=== PATIENT | female | born 1950 | race Caucasian/White ===

== ENCOUNTER 2018-09-01 13:54 | Outpatient (CLI) | payer MEDICARE, OTHER ==
--- NOTE | 2018-09-01 17:12 | DEXA Report ---
Reason: AGE RELATED OSTOPOROSIS W/O CURRENT PATHOLOGICAL Procedure Date: 09/01/2018 Accession Number: [id number] / [id number] Procedure: DEX - Dexa Spine and/or Hip CPT Code: FULL RESULT: EXAM: Dexa Spine and/or Hip DATE: 09/01/2018 2:38 PM CLINICAL HISTORY: AGE RELATED OSTEOPOROSIS W/O CURRENT PATHOLOGICAL TECHNIQUE: Dual energy x-ray absorptiometry (DXA) was performed on a [employer] System. Regions measured are the AP Spine, femoral neck, and if needed forearm. COMPARISON: None. In accordance with the International Society for Clinical Densitometry (ISCD) guidelines, data from previous exams may be reanalyzed using current recommendations and techniques. This is done to allow a more accurate basis for comparison with the current study. FINDINGS: The data for the lumbar spine is as follows: BMD (g/cm/cm) T-SCORE Z-SCORE REGION L1 0.856 -2.3 -0.5 L2 0.855 -2.9 -1.1 L3 0.984 -1.8 0.0 L4 0.928 -2.3 -0.5 TOTAL 0.910 -2.3 -0.5 NOTE: All evaluable vertebrae are used for classification The data for the hip is as follows: BMD (g/cm/cm) T-SCORE Z-SCORE REGION Neck 0.590 -3.2 -1.6 TOTAL 0.647 -2.9 -1.4 NOTE: The femoral neck or total proximal femur, whichever is lowest, is used for classification. IMPRESSION: THE WHO CLASSIFICATION BASED ON THE INTERNATIONAL REFERENCE STANDARD IS OSTEOPOROSIS. THE FRACTURE RISK IS HIGH. RECOMMENDATION: Patients with diagnosis of osteoporosis or osteopenia should have regular bone mineral density assessment. For those eligible for Medicare, routine testing is allowed once every 2 years. Testing frequency can be increased for patients who have rapidly progressing disease or for those who are receiving medical therapy to restore bone mass. COMMENT: World Health Organization (WHO) definitions for osteoporosis and osteopenia: NORMAL BMD: T-score at -1.0 or higher, fracture risk is low OSTEOPENIA BMD: T-score between -1.0 and -2.5, fracture risk is increased. OSTEOPOROSIS BMD: T-score at -2.5 or lower, fracture risk is high. National Osteoporosis Foundation recommends: 1. Obtain adequate dietary calcium (at least 1200 mg per day) and vitamin D (400-800 international units per day). 2. Participate, as appropriate, in regular weightbearing and muscle-strengthening exercise. 3. Avoid tobacco use and reduce alcohol and caffeine intake. 4. For more detailed information see the website at www.NOF.org.
== END 2018-09-01 13:55 | disposition home or self-care (01) ==
LOC: DI 13:54
PROVIDERS: ATTEND Family Medicine
DX: M81.0 Age-related osteoporosis without current pathological fracture (principal)
CPT/HCPCS: 77080

== ENCOUNTER 2019-09-05 12:26 | Outpatient (CLI) | payer MEDICARE, OTHER ==
--- NOTE | 2019-09-06 10:13 | DEXA Report ---
Reason: OSTEOPOROSIS, POST MENOPAUSAL Procedure Date: 09/05/2019 Accession Number: [id number] / [id number] Procedure: DEX - Dexa Spine and/or Hip CPT Code: Final Report FULL RESULT: EXAM: Dexa Spine and/or Hip DATE: 09/05/2019 12:52 PM CLINICAL HISTORY: OSTEOPOROSIS, POST MENOPAUSAL TECHNIQUE: Dual energy x-ray absorptiometry (DXA) was performed on a [employer] System. Regions measured are the AP Spine, femoral neck, and if needed forearm. COMPARISON: 09/01/2018. In accordance with the International Society for Clinical Densitometry (ISCD) guidelines, data from previous exams may be reanalyzed using current recommendations and techniques. This is done to allow a more accurate basis for comparison with the current study. FINDINGS: The data for the lumbar spine is as follows: BMD (g/cm/cm) T-SCORE Z-SCORE REGION L1 0.822 -2.6 -0.8 L2 0.834 -3.1 -1.3 L3 0.942 -2.1 -0.4 L4 0.942 -2.1 -0.4 TOTAL 0.890 -2.4 -0.6 NOTE: All evaluable vertebrae are used for classification The data for the hip is as follows: BMD (g/cm/cm) T-SCORE Z-SCORE REGION Neck 0.614 -3.1 -1.4 TOTAL 0.668 -2.7 -1.2 NOTE: The femoral neck or total proximal femur, whichever is lowest, is used for classification. DXA RESULTS SUMMARY: Spine SCAN DATE AGE BMD CHANGE VS CHANGE VS PREVIOUS PREVIOUS % 09[birth year]05/2019 [age] 0.890 -0.020 -2.2 09[birth year]01/2018 68.6 0.910 * Denotes significant change at the 95% confidence level. Denotes dissimilar scan types or analysis methods. DXA RESULTS SUMMARY: Hip SCAN DATE AGE BMD CHANGE VS CHANGE VS PREVIOUS PREVIOUS % [birth year][age][birth year]/2019 69.6 0.668 0.021 3.2 09[birth year]01/2018 68.6 0.647 * Denotes significant change at the 95% confidence level. Denotes dissimilar scan types or analysis methods. IMPRESSION: THE WHO CLASSIFICATION BASED ON THE INTERNATIONAL REFERENCE STANDARD IS OSTEOPOROSIS. THE FRACTURE RISK IS HIGH. RECOMMENDATION: Patients with diagnosis of osteoporosis or osteopenia should have regular bone mineral density assessment. For those eligible for Medicare, routine testing is allowed once every 2 years. Testing frequency can be increased for patients who have rapidly progressing disease or for those who are receiving medical therapy to restore bone mass. COMMENT: World Health Organization (WHO) definitions for osteoporosis and osteopenia: NORMAL BMD: T-score at -1.0 or higher, fracture risk is low OSTEOPENIA BMD: T-score between -1.0 and -2.5, fracture risk is increased. OSTEOPOROSIS BMD: T-score at -2.5 or lower, fracture risk is high. National Osteoporosis Foundation recommends: 1. Obtain adequate dietary calcium (at least 1200 mg per day) and vitamin D (400-800 international units per day). 2. Participate, as appropriate, in regular weightbearing and muscle-strengthening exercise. 3. Avoid tobacco use and reduce alcohol and caffeine intake. 4. For more detailed information see the website at www.NOF.org.
== END 2019-09-05 12:27 | disposition home or self-care (01) ==
LOC: DI 12:26
PROVIDERS: ATTEND Family Medicine
DX: M81.0 Age-related osteoporosis without current pathological fracture (principal); Z78.0 Asymptomatic menopausal state
CPT/HCPCS: 77080

== ENCOUNTER 2020-12-09 08:49 | Outpatient (CLI) | payer MEDICARE, OTHER ==
--- NOTE | 2020-12-10 12:36 | Mammography Report ---
BILATERAL DIGITAL SCREENING MAMMOGRAM 3D/2D WITH AUGMENTATION: 12/09/2020 CLINICAL: Routine screening. Comparison is made to exams dated: 11/28/2019 mammogram, 11/16/2018 mammogram, 09/02/2017 mammogram, a nd 08/31/2016 mammogram - [facility]. The tissue of both breasts is predominantly fat ty. There is a 1.1 cm mass in the left breast at 9 o'clock middle depth 3.7 cm from the nipple. No other significant masses, calcifications, or other findings are seen in either breast. IMPRESSION: INCOMPLETE: NEEDS ADDITIONAL IMAGING EVALUATION The 1.1 cm mass in the left breast is indeterminate. A possible ultrasound or additional views with possible ultrasound are recommended. This exam was interpreted at Station ID: [id number]. NOTE: For mammograms, a report in lay terms will be sent to the patient. Approximately 15% of breast malignancies will not be visualized mammographically. In the management of a palpable breast mass, a negative mammogram must not discourage biopsy of a clinically suspicious lesion. Electronically Signed By: Eugenio Herrera M.D., jr/anh:12/09/2020 09:39:20 ACR BI-RADS Category 0: Incomplete 3340F PARENCHYMAL PATTERN: (F) - The breast(s) demonstrate(s) diffuse fatty replacement. BI-RADS CATEGORY: (0) - 0 Ultrasound [id number] Immediate follow-up LATERALITY: (B)
== END 2020-12-09 08:50 | disposition home or self-care (01) ==
LOC: DI.S 08:49
DX: Z12.31 Encounter for screening mammogram for malignant neoplasm of breast (principal); N63.25 Unspecified lump in the left breast, overlapping quadrants

== ENCOUNTER 2021-01-29 10:25 | Outpatient (CLI) | payer MEDICARE, OTHER ==
--- NOTE | 2021-01-30 15:19 | Mammography Report ---
UNILATERAL LEFT DIGITAL DIAGNOSTIC MAMMOGRAM 3D/2D: 01/29/2021 CLINICAL: Patient returns for additional imaging over a suspected mass in the left breast. Comparison is made to exams dated: 12/09/2020 mammogram - [facility], 11/28/2019 [facility], 11/16/2018 mammogram, 09/02/2017 mammogram, and 08/31/2016 mammogram - [facility] [place]. There are scattered fibroglandular elements in left breast. Left submuscular saline implant is present. There is a 1.1 cm mass in the left breast at 9 o'clock middle depth 3.7 cm from the nipple. There also is an oval low density asymmetry with an obscured and circumscribed margin in the left cailin ast at 11 o'clock posterior depth. No other significant masses or calcifications are seen in the breast. IMPRESSION: INCOMPLETE: NEEDS ADDITIONAL IMAGING EVALUATION The 1.1 cm mass in the left breast at 9 o'clock middle depth resembles a cyst but remains indetermin ate. The oval low density asymmetry in the left breast at 11 o'clock posterior depth resembles a cyst but remains indeterminate. Ultrasound is recommended for full evaluation of these areas . This was performed immediately followi ng this exam. This exam was interpreted at Station ID: [id number]. NOTE: For mammograms, a report in lay terms will be sent to the patient. Approximately 15% of breast malignancies will not be visualized mammographically. In the management of a palpable breast mass, a negative mammogram must not discourage biopsy of a clinically suspicious lesion. Electronically Signed By: Linda gonzalez/:01/29/2021 11:49:15 ACR BI-RADS Category 0: Incomplete 3340F PARENCHYMAL PATTERN: (A) - The breast(s) demonstrate(s) scattered fibroglandular densities. BI-RADS CATEGORY: (0) - 0 Ultrasound [id number] Immediate follow-up LATERALITY: (B)
--- NOTE | 2021-01-30 15:19 | Ultrasound Report ---
LIMITED ULTRASOUND OF LEFT BREAST: 01/29/2021 CLINICAL: Patient returns for additional imaging over a suspected mass in the left breast. Comparison is made to exams dated: 01/29/2021 mammogram, 12/09/2020 mammogram - [facility], 11/28/2019 mammogram, 11/16/2018 mammogram, 09/02/2017 mammogram, and 08/31/2016 mammogram - [facility]. Color flow ultrasound of the left breast 9 o'clock and 11 o'clock regions was performed. Clements scale images of the real-time examination were reviewed. There is a possible 0.9 cm x 1.2 cm x 0.2 cm oval area of fibroglandular tissue in the left breast at 11 o'clock middle depth 3 cm from the nipple with the long axis parallel to the skin. This oval are a of fibroglandular tissue is hypoechoic. This correlates with mammography findings. Color flow dakota ging demonstrates that there is no vascularity present. IMPRESSION: PROBABLY BENIGN The 1.2 cm oval area of possible fibroglandular tissue in the left breast resembles clustered cysts, a lymph node, or a fibroadenoma and is probably benign. There is no abnormality seen in the left breast to correspond with the mammography finding at 9 o'rivka ck which likely represents normal fibroglandular tissue. A follow-up left mammogram and an ultrasound in 6 months is recommended to demonstrate stability of t hese areas . Findings and recommendations were conveyed to the patient at time of exam. This exam was interpreted at Station ID: [id number]. Electronically Signed By: Linda gonzalez/:01/29/2021 12:18:30 Ultrasound BI-RADS: 3 Probably benign BI-RADS CATEGORY: (3) - 3 Mammo and [place] [id number] 6 month follow-up LATERALITY: (L)
== END 2021-01-29 10:26 | disposition home or self-care (01) ==
LOC: DI 10:25
PROVIDERS: ATTEND Student in an Organized Health Care Education/Training Program
DX: R92.8 Other abnormal and inconclusive findings on diagnostic imaging of breast (principal); N64.9 Disorder of breast, unspecified

== ENCOUNTER 2021-08-11 08:03 | Outpatient (CLI) | payer MEDICARE, OTHER ==
--- NOTE | 2021-08-18 14:26 | DEXA Report ---
PROCEDURE: Dexa Spine and/or Hip INDICATIONS: OSTEOPOROSIS TECHNIQUE: Dual energy x-ray absorptiometry (DXA) was performed on a [employer] System. Regions measur ed are the AP Spine, femoral neck, and if needed forearm. COMPARISON: None. FINDINGS: Lumbar Spine: Bone Mineral Density 0.882 g/cm/cm,T score -2.5, minimal osteoporosis Left Hip: Bone Mineral Density 0.629 g/cm/cm,T score -3.0, mild osteoporosis Left Femoral Neck: Bone Mineral Density 0.588 g/cm/cm, T score -3.2, mild osteoporosis (T score greater or equal to -1.0: NORMAL) (T score from -1.1 to -2.4: OSTEOPENIA) (T score less than or equal to -2.5 to: OSTEOPOROSIS) Impression: Osteoporosis within the spine, hip and femoral neck. Patients with diagnosis of osteoporosis or osteopenia should have regular bone mineral density assess ment. For those eligible for Medicare, routine testing is allowed once every 2 years. Testing frequ ency can be increased for patients who have rapidly progressing disease or for those who are receivin g medical therapy to restore bone mass. Reviewed by: Teagan Emmanuel MD on 08/18/2021 2:25 PM PDT Approved by: Teagan Emmanuel MD on 08/18/2021 2:25 PM PDT Station ID: [id number]
== END 2021-08-11 08:04 | disposition home or self-care (01) ==
LOC: DI 08:03
PROVIDERS: ATTEND Family Medicine
DX: M81.0 Age-related osteoporosis without current pathological fracture (principal); N64.9 Disorder of breast, unspecified; R92.8 Other abnormal and inconclusive findings on diagnostic imaging of breast

== ENCOUNTER 2022-05-14 07:59 | Outpatient (CLI) | payer MEDICARE, OTHER ==
--- NOTE | 2022-05-15 14:10 | Mammography Report ---
BILATERAL DIGITAL DIAGNOSTIC MAMMOGRAM 3D/2D: 05/14/2022 CLINICAL: Patient returns for a 6 month follow up of the left breast; due for bilateral. Comparison is made to exams dated: 08/11/2021 mammogram, 01/29/2021 mammogram, 12/09/2020 mammogram - [facility], 11/28/2019 mammogram, and 11/16/2018 mammogram - [facility]. There are scattered fibroglandular elements in both breasts. Bilateral subpectoral saline implants are stable and intact. There is a 9 mm oval low density asymmetry with an obscured and circumscribed margin in the left kamlesh st at 11 o'clock middle depth. This is less prominent. No other significant masses, calcifications, or other findings are seen in either breast. IMPRESSION: INCOMPLETE: NEEDS ADDITIONAL IMAGING EVALUATION The 9 mm oval low density asymmetry in the left breast most likely is fibroglandular tissue and is st able. An ultrasound is recommended to confirm stability. This was performed immediately following thi s exam. Based on the Tyrer Cuzick model (a risk assessment model) the patients lifetime risk is 5.3% and her 10 year risk is 3.7%. According to the ACR, ACS, and NCCN guidelines, an annual breast MRI exam jakob g with mammogram is recommended if the patients lifetime risk is 20% or greater. This exam was interpreted at Station ID: [id number]. NOTE: For mammograms, a report in lay terms will be sent to the patient. Approximately 15% of breast malignancies will not be visualized mammographically. In the management of a palpable breast mass, a negative mammogram must not discourage biopsy of a clinically suspicious lesion. Electronically Signed By: Linda gonzalez/:05/14/2022 09:27:01 ACR BI-RADS Category 0: Incomplete 3340F PARENCHYMAL PATTERN: (A) - The breast(s) demonstrate(s) scattered fibroglandular densities. BI-RADS CATEGORY: (0) - 0 Ultrasound [id number] Immediate follow-up LATERALITY: (B)
--- NOTE | 2022-05-15 14:10 | Ultrasound Report ---
LIMITED ULTRASOUND OF LEFT BREAST: 05/14/2022 CLINICAL: Patient returns today to evaluate a focal asymmetry in the left breast. Comparison is made to exams dated: 05/14/2022 mammogram, 08/11/2021 ultrasound, 08/11/2021 mammogram, 01/29/2021 ultrasound, 01/29/2021 mammogram, and 12/09/2020 mammogram - [facility]. Color flow ultrasound of the left breast 11 o'clock region was performed. Clements scale images of the real-time examination were reviewed. There is a 1.2 cm x 1.3 cm x 0.2 cm oval area of fibroglandular tissue with a circumscribed margin in the left breast at 10 o'clock anterior depth 3 cm from the nipple with the long axis parallel to the skin. This oval area of fibroglandular tissue displays no posterior acoustic shadowing or enhanceme nt. This abnormality is not significantly changed and correlates with mammography findings. Color f low imaging demonstrates that there is no vascularity present. IMPRESSION: PROBABLY BENIGN The 1.3 cm oval area of fibroglandular tissue in the left breast has a differential diagnosis of a fi broadenoma and is probably benign. A follow-up left ultrasound in 6 months is recommended to demonstrate stability. Findings and recommendations were conveyed to the patient at time of exam. This exam was interpreted at Station ID: [id number]. Electronically Signed By: Linda gonzalez/:05/14/2022 10:22:02 Ultrasound BI-RADS: 3 Probably benign BI-RADS CATEGORY: (3) - 3 Ultrasound [id number] 6 month follow-up LATERALITY: (L)
== END 2022-05-14 08:00 | disposition home or self-care (01) ==
LOC: DI 07:59
PROVIDERS: ATTEND Family Medicine
DX: N60.11 Diffuse cystic mastopathy of right breast (principal); R92.8 Other abnormal and inconclusive findings on diagnostic imaging of breast

== ENCOUNTER 2022-10-13 07:00 | Outpatient (CLI) | payer MEDICARE, OTHER | END 2022-10-13 23:59 | disposition home or self-care (01) | LOC: LAB.S 07:00 | PROVIDERS: ATTEND Physician Assistant Medical | DX: R31.9 Hematuria, unspecified (principal); R30.0 Dysuria | CPT/HCPCS: 87086 ==

== ENCOUNTER 2022-11-17 13:11 | Outpatient (CLI) | payer MEDICARE, OTHER ==
--- NOTE | 2022-11-18 15:11 | Ultrasound Report ---
LIMITED ULTRASOUND OF LEFT BREAST: 11/17/2022 CLINICAL: Short term follow up for the left breast. Comparison is made to exams dated: 05/14/2022 ultrasound, 08/11/2021 ultrasound, and 01/29/2021 [facility]. Color flow and real-time ultrasound of the left breast 11 o'clock region were performed. Clements scale images of the real-time examination were reviewed. There is a stable 1.1 cm x 1.1 cm x 0.3 cm oval mass in the left breast at 11 o'clock anterior depth 3 cm from the nipple. This oval mass is hypoechoic, possibly containing a thin, fatty hilum. This c orrelates with mammography findings. Color flow imaging demonstrates that there is no vascularity pr esent. IMPRESSION: BENIGN No change in the 1.1 cm x 1.1 cm x 0.3 cm oval mass in the left breast for two years. It most likely is a lymph node or a fibroadenoma and is benign given stability. Return to annual mammogram screening schedule is recommended. Findings and recommendations were conveyed to the patient at time of exam. This exam was interpreted at Station ID: [id number]. Electronically Signed By: Linda gonzalez/:11/17/2022 13:58:13 Ultrasound BI-RADS: 2 Benign BI-RADS CATEGORY: (2) - 2 RECOMMENDATION: (ADDMAM) - Recommend additional mammographic views. [id number] return to screening LATERALITY: (B)
== END 2022-11-17 13:12 | disposition home or self-care (01) ==
LOC: DI 13:11
PROVIDERS: ATTEND Family Medicine
DX: R92.8 Other abnormal and inconclusive findings on diagnostic imaging of breast (principal)

== ENCOUNTER 2024-02-08 08:00 | Outpatient (CLI) | payer MEDICARE, OTHER ==
--- NOTE | 2024-02-08 11:47 | XRAY Report ---
PROCEDURE: Chest 2V INDICATIONS: DYSPNEA ON EXERTION TECHNIQUE: 2 views of the chest were acquired. COMPARISON: None. FINDINGS: Surgical changes and devices: None. Lungs and pleura: No pleural effusions or pneumothorax. Lungs are hyperexpanded and clear. Mediastinum: Mediastinal contours appear normal. Heart size is normal. Bones and chest wall: No suspicious bony lesions. Overlying soft tissues appear unremarkable. IMPRESSION: No acute cardiopulmonary process. Hyperexpanded lungs can be seen in the setting of COPD. Reviewed by: Bertin Apodaca MD on 02/08/2024 11:46 AM PDT Approved by: Bertin Apodaca MD on 02/08/2024 11:46 AM PDT Station ID: [id number]
== END 2024-02-08 23:59 | disposition home or self-care (01) ==
LOC: DI.S 08:00
PROVIDERS: ATTEND Registered Nurse
DX: J03.90 Acute tonsillitis, unspecified (principal); R06.09 Other forms of dyspnea; R05.1 Acute cough

== ENCOUNTER 2024-02-08 08:00 | Outpatient (CLI) | payer MEDICARE, OTHER | END 2024-02-08 08:01 | disposition home or self-care (01) | LOC: LAB.S 08:00 | PROVIDERS: ATTEND Registered Nurse | DX: Z53.9 Procedure and treatment not carried out, unspecified reason (principal) ==

== ENCOUNTER 2024-02-15 08:17 | Outpatient (CLI) | payer MEDICARE, OTHER ==
--- NOTE | 2024-02-15 09:52 | DEXA Report ---
PROCEDURE: Dexa Spine and/or Hip INDICATIONS: OSTEOPOROSIS TECHNIQUE: Dual energy x-ray absorptiometry (DXA) was performed on a mob[employer] System. Regions measur ed are the AP Spine, femoral neck, and if needed forearm. COMPARISON: DEXA 08/11/2021 FINDINGS: Lumbar Spine: Bone Mineral Density: 0.913 g/cm/cm,T score: -2.2. Since the most recent prior study, there has been a statistically significant increase in bone mineral density by 3.5 percent. Left Femoral Neck: Bone Mineral Density: 0.623 g/cm/cm, T score: -3.0. Left Hip: Bone Mineral Density: 0.637 g/cm/cm,T score: -2.9. There has been no statistically significant change in bone mineral density since the prior study. (T score greater or equal to -1.0: NORMAL) (T score from -1.1 to -2.4: OSTEOPENIA) (T score less than or equal to -2.5 to: OSTEOPOROSIS) Impression: By WHO criteria, this patient has osteoporosis. Interval statistical increase in bone mineral density of the lumbar spine. No statistical interval ch calixto in bone mineral density of the hip. Patients with diagnosis of osteoporosis or osteopenia should have regular bone mineral density assess ment. For those eligible for Medicare, routine testing is allowed once every 2 years. Testing frequ ency can be increased for patients who have rapidly progressing disease or for those who are receivin g medical therapy to restore bone mass. Reviewed by: Bertin Apodaca MD on 02/15/2024 9:50 AM PDT Approved by: Bertin Apodaca MD on 02/15/2024 9:50 AM PDT Station ID: [id number]
== END 2024-02-15 08:18 | disposition home or self-care (01) ==
LOC: DI 08:17
PROVIDERS: ATTEND Internal Medicine Rheumatology
DX: M81.0 Age-related osteoporosis without current pathological fracture (principal)

== ENCOUNTER 2024-03-07 10:01 | Outpatient (CLI) | payer MEDICARE, OTHER ==
--- NOTE | 2024-03-07 14:52 | MRI Report ---
PROCEDURE: Knee LT WO INDICATIONS: MENISCAL INJURY TECHNIQUE: Noncontrast sagittal PD fast spin echo and T2 fast spin echo with fat saturation, sagittal 3-D gradie nt sequence with fat saturation; coronal T1 spin echo and PD fast spin echo with fat saturation, and axial PD fast spin echo with fat saturation through the knee. COMPARISON: None. FINDINGS: Image quality: Excellent. Menisci: Complex oblique tear involving posterior horn of medial meniscus is seen extending to both s uperior and inferior articulating surfaces. The lateral meniscus is intact. The meniscal root ligamen ts appear intact. Cruciate ligaments: The anterior and posterior cruciate ligaments appear intact. Medial structures: The medial collateral ligament appears mildly thickened with surrounding soft tis cecelia edema. Visualized portions of the pes anserinus tendons appear normal. No abnormal bursal fluid. Lateral structures: The lateral collateral ligament, long and short heads of the biceps femoris tend on appear intact. The popliteus tendon appears intact. Iliotibial band appears normal. Anterior structures: The quadriceps and patellar tendons appear intact. Patellar alignment is hayder l. No femoral trochlear dysplasia or ventral trochlear prominence. No edema in the infrapatellar fa t pad. Bones and cartilage: There is no fracture or dislocation. Nonspecific marrow edema involving posterio r medullary space of distal femoral shaft is seen without discrete fracture line. Mild to moderate tr icompartmental osteoarthritis and chondromalacia is seen more notably medial femoral tibial compartme nt. Joint space: There is small knee joint fluid. There is a tiny popliteal cyst. Normal appearing synov ial plicae are incidentally noted. IMPRESSION: 1. Complex oblique tear involving posterior horn of medial meniscus extending to both superior and in ferior articulating surfaces. The lateral meniscus is intact. 2. Cruciate ligaments are intact. 3. Low-grade MCL sprain. 4. Mild to moderate tricompartmental osteoarthritis and chondromalacia more notably in medial femoral tibial compartment. No fracture or dislocation. Nonspecific T2 hyperintense signal in posterior leigh ures space of distal femoral shaft likely represent stress related changes. 5. Small joint effusion and a tiny popliteal cyst. No loose bodies. Reviewed by: Memo Rhoades MD on 03/07/2024 2:51 PM PDT Approved by: Memo Rhoades MD on 03/07/2024 2:51 PM PDT Station ID: [id number]
== END 2024-03-07 10:02 | disposition home or self-care (01) ==
LOC: DI 10:01
PROVIDERS: ATTEND Family Medicine
DX: M81.0 Age-related osteoporosis without current pathological fracture (principal); S83.242A Other tear of medial meniscus, current injury, left knee, initial encounter; S83.412A Sprain of medial collateral ligament of left knee, initial encounter; M17.12 Unilateral primary osteoarthritis, left knee; M94.262 Chondromalacia, left knee; M25.462 Effusion, left knee; M71.22 Synovial cyst of popliteal space [Baker], left knee

== ENCOUNTER 2024-06-23 08:00 | Outpatient (CLI) | payer MEDICARE, OTHER | END 2024-06-23 23:59 | disposition home or self-care (01) | LOC: LAB 08:00 | PROVIDERS: ATTEND Physician Assistant | DX: N39.0 Urinary tract infection, site not specified (principal) | CPT/HCPCS: 87086 ==

== ENCOUNTER 2024-06-28 08:00 | Outpatient (CLI) | payer MEDICARE, OTHER ==
[2024-06-29 00:48] LABS: BACTERIAL VAGINOSIS DNA NEGATIVE (NEGATIVE); CANDIDA GLABRATA DNA NEGATIVE (NEGATIVE); CANDIDA GROUP DNA NEGATIVE (NEGATIVE); CANDIDA KRUSEI DNA NEGATIVE (NEGATIVE); TRICHOMONAS VAGINALIS DNA NEGATIVE (NEGATIVE)
== END 2024-06-28 23:59 | disposition home or self-care (01) ==
LOC: LAB.N 08:00
PROVIDERS: ATTEND Registered Nurse
DX: N39.0 Urinary tract infection, site not specified (principal); N90.89 Other specified noninflammatory disorders of vulva and perineum
CPT/HCPCS: 81514; 87086; 87491; 87591; 87661